=== PATIENT | male | born 2000 | race Two or more races ===

== ENCOUNTER 2018-02-23 11:33 | Day surgery (SDC) | payer OTHER ==
[~2018-02-23 11:33] MED LIST: CEFAZOLIN SODIUM 2 GM in DEXTROSE 5%-WATER 100 ML IV PRN
[2018-02-23] MEDS ORDERED: LIDOCAINE 2% INJ-PF (20 MG/ML) 10 ML AMPUL ONE (16:05)
[2018-02-23] MEDS ORDERED: FENTANYL CITRATE INJ/PF 100 MCG/2 ML AMPUL ONE (16:06)
[2018-02-23] MEDS ORDERED: PROPOFOL INJ 200 MG/20 ML VIAL IV ONE (16:06)
[2018-02-23] MEDS ORDERED: ONDANSETRON HCL INJ/PF 4 MG/2 ML SDV ONE (16:06)
[2018-02-23] MEDS ORDERED: DEXAMETHASONE SOD PHOSPHATE INJ 4 MG/1 ML VIAL ONE (16:06)
[2018-02-23] MEDS ORDERED: MIDAZOLAM 2 MG/2 ML INJ ONE (16:06)
[2018-02-23] MEDS ORDERED: ACETAMINOPHEN 1,000 MG/100 ML RTUPB IV ONE (16:06)
[2018-02-23] MEDS ORDERED: BUPIVACAINE HCL 0.5 % INJ/PF 30 ML SDV ONE (16:13)
[2018-02-23] MEDS ORDERED: MORPHINE SULFATE 10 MG/ML INJ IV PRN (16:50)
[2018-02-23] MEDS ORDERED: DIPHENHYDRAMINE HCL 50 MG/ML VIAL IV PRN (16:50)
[2018-02-23] MEDS ORDERED: PROMETHAZINE HCL INJ 25 MG/1 ML VIAL IV PRN ×2 (16:50)
[2018-02-23] MEDS ORDERED: FENTANYL CITRATE INJ/PF 100 MCG/2 ML AMPUL IV PRN ×3 (16:50)
[2018-02-23] MEDS ORDERED: ONDANSETRON HCL INJ/PF 4 MG/2 ML SDV IV PRN ×2 (16:50→18:45)
[2018-02-23] MEDS ORDERED: MEPERIDINE HCL/PF INJ 25 MG/1 ML DISP.SYRIN IV PRN (16:50)
[2018-02-23] MEDS ORDERED: OXYCODONE-ACETAMINOPHEN 5-325 MG TABLET PO PRN (18:19)
[2018-02-23 19:39] VITALS: BP 113/70
--- NOTE | 2018-02-23 19:45 | RADIOLOGY REPORT (SQ) ---
EXAM DESCRIPTION: FINGER RIGHT; NO CHG FLUORO COMPLETED DATE/TIME: 02/23/2018 7:12 pm REASON FOR STUDY: RT 5TH CHIP REPAIR COMPARISON: None. FLUOROSCOPY TIME: 13 seconds 2 Images saved to PACS LIMITATIONS: None. PROCEDURE: Digital chip fracture repair. FINDINGS: Images seen with fluoro document the procedure. IMPRESSION: Digital chip fracture repair. Refer to operative note for further information. COMMENT: PQRS 6045F: Fluoroscopy time of the procedure is documented in the report. TECHNICAL DOCUMENTATION: JOB ID: [id number] [employer]- All Rights Reserved Reading location - IP/workstation name: [email or web address]
--- NOTE | 2018-02-23 19:45 | RADIOLOGY REPORT (SQ) ---
EXAM DESCRIPTION: FINGER RIGHT; NO CHG FLUORO COMPLETED DATE/TIME: 02/23/2018 7:12 pm REASON FOR STUDY: RT 5TH CHIP REPAIR COMPARISON: None. FLUOROSCOPY TIME: 13 seconds 2 Images saved to PACS LIMITATIONS: None. PROCEDURE: Digital chip fracture repair. FINDINGS: Images seen with fluoro document the procedure. IMPRESSION: Digital chip fracture repair. Refer to operative note for further information. COMMENT: PQRS 6045F: Fluoroscopy time of the procedure is documented in the report. TECHNICAL DOCUMENTATION: JOB ID: [id number] [employer]- All Rights Reserved Reading location - IP/workstation name: [email or web address]
--- NOTE | 2018-02-23 21:33 | OPERATIVE REPORT E ---
Operative Report NAME: EMILY HUITRON : 2000 AGE: 17Y DATE OF SURGERY:02/23/2018 ROOM: PREOPERATIVE DIAGNOSES: 1. RIGHT SMALL FINGER DISTAL PHALANX ARTICULAR FRACTURE. 2. RIGHT SMALL FINGER EXTENSOR TENDON DISRUPTION. POSTOPERATIVE DIAGNOSES: 1. RIGHT SMALL FINGER DISTAL PHALANX ARTICULAR FRACTURE. 2. RIGHT SMALL FINGER EXTENSOR TENDON DISRUPTION. OPERATIONS: 1. Open reduction internal fixation, right small finger distal phalanx articular fracture. 2. Right small finger extensor tendon terminal slip repair. SURGEON: SHUKRI LEMON M.D. ANESTHESIA: General. BLOOD LOSS: Minimal. COMPLICATIONS: None. IMPLANTS: Mills 1.2 mm screw with 1-hole plate. INDICATIONS FOR PROCEDURE: The patient is a 17-year-old [employer] who had sustained a displaced articular fracture of the distal phalanx with disruption of the extensor mechanism. He had been treated nonoperatively with no interval consolidation, as well as volar subluxation of the distal interphalangeal joint. PROCEDURE: Following the induction of a general anesthetic and administration of antibiotics, the patient was positioned supine on the operating room table. Bony prominences were padded. A tourniquet was placed proximally on the right arm, but not inflated. The right upper extremity was sterilely prepped with Chloraprep and draped in standard fashion. The arm was exsanguinated and the tourniquet inflated to 100 mm by systolic pressure. A Y incision was made over the distal interphalangeal joint. Sharp incision was performed through skin, blunt dissection through subcutaneous tissue. Extensor tendon was identified and protected. Image intensification was used to demonstrate the articular fracture. The articular fracture was displaced with abundance of granulation tissue present. This was opened up with a 15 blade and all of the bony contours were freshened. The distal phalanx fracture was mobilized and placed back into its bony bed. It was a relatively small 2 to 3 mm piece. It was held in place with a 1-hole plate using a 1.2 mm screw. Image intensification was used, which confirmed correct placement of the implant, coaptation of the fracture and buddhist of the normal alignment of the distal interphalangeal joint. The wound was irrigated. The extensor mechanism was imbricated using a dermatotenodesis technique. A 4-0 nylon suture was used to grasp the extensor both distal and proximal to the bony fragment. This was performed in 4 [address] to repair both the extensor tendon as well as the bony disruption at the distal interphalangeal joint. Then 0.25% Marcaine was injected as a digital block for postoperative analgesia. A sterile dressing was placed, followed by a splint, splinting the distal interphalangeal and proximal interphalangeal joints in full extension. The patient tolerated the procedure well without complications and was brought to the recovery room in stable condition. DICTATING PHYSICIAN: SHUKRI LEMON M.D. [id number] PHY#: [id number] ID: [id number] JOB#: [id number] ACCT: [id number] cc:SHUKRI LEMON M.D. >
== END 2018-02-23 19:30 | disposition home or self-care (01) ==
LOC: OROUT 11:33 → EDBD 17:00 → OROUT 19:30
PROVIDERS: ATTEND Orthopaedic Surgery
DX: S62.636A Displaced fracture of distal phalanx of right little finger, initial encounter for closed fracture (principal); S66.316A Strain of extensor muscle, fascia and tendon of right little finger at wrist and hand level, initial encounter; W19.XXXA Unspecified fall, initial encounter; M20.011 Mallet finger of right finger(s)
CPT/HCPCS: 73140; 26765; 26418; J2250; J3490 ×2; J0690; J1100; J3010; J2405; J2704; J0131; 01830

== ENCOUNTER 2018-04-06 08:30 | Day surgery (SDC) | payer OTHER ==
[~2018-04-06 08:30] MED LIST changes: +CEFAZOLIN 2 GM/D5W RTU 2 GM/50 ML RTUPB IV PRN; -CEFAZOLIN SODIUM 2 GM in DEXTROSE 5%-WATER 100 ML IV PRN
[2018-04-06] MEDS ORDERED: CEFAZOLIN 2 GM/D5W RTU 2 GM/50 ML RTUPB IV ONE (08:33)
[2018-04-06] MEDS ORDERED: PROPOFOL INJ 200 MG/20 ML VIAL IV ONE (10:20)
[2018-04-06] MEDS ORDERED: FENTANYL CITRATE INJ/PF 100 MCG/2 ML AMPUL ONE (10:20)
[2018-04-06] MEDS ORDERED: ACETAMINOPHEN 1,000 MG/100 ML RTUPB IV ONE (10:20)
[2018-04-06] MEDS ORDERED: MIDAZOLAM 2 MG/2 ML INJ ONE (10:20)
[2018-04-06] MEDS ORDERED: BUPIVACAINE HCL 0.5 % INJ/PF 30 ML SDV ONE (10:21)
[2018-04-06] MEDS ORDERED: PROMETHAZINE HCL INJ 25 MG/1 ML VIAL IV PRN (11:07)
[2018-04-06] MEDS ORDERED: FENTANYL CITRATE INJ/PF 100 MCG/2 ML AMPUL IV PRN ×3 (11:07)
[2018-04-06] MEDS ORDERED: ONDANSETRON HCL INJ/PF 4 MG/2 ML SDV IV PRN (11:07)
[2018-04-06] MEDS ORDERED: OXYCODONE-ACETAMINOPHEN 5-325 MG TABLET PO PRN (11:57)
[2018-04-06] MEDS ORDERED: ONDANSETRON HCL INJ/PF 4 MG/2 ML SDV IV ONE (12:00)
[2018-04-06 13:43] VITALS: BP 118/74
--- NOTE | 2018-04-06 13:52 | RADIOLOGY REPORT (SQ) ---
EXAM DESCRIPTION: NO CHG FLUORO; FINGER RIGHT COMPLETED DATE/TIME: 04/06/2018 12:42 pm REASON FOR STUDY: RT PINKY FINGER ORIF / PINNING ASST WITH FLUORO IN OR S62.606A FRACTURE OF UNSP P HALANX OF RIGHT LITTLE FINGER, IN COMPARISON: None. FLUOROSCOPY TIME: 20 seconds 3 images saved to PACS. TECHNIQUE: Intra-operative images acquired during surgical procedure to evaluate progress. NUMBER OF IMAGES: 3 LIMITATIONS: None. FINDINGS: Selected images from orthopedic pinning of the distal interphalangeal joint. IMPRESSION: IMAGE(S) OBTAINED DURING PROCEDURE. COMMENT: Quality ID 145: Final reports for procedures using fluoroscopy that document radiation exp osure indices, or exposure time and number of fluorographic images (if radiation exposure indices are not available) Please consult full operative report of the attending physician for description of the procedure. TECHNICAL DOCUMENTATION: JOB ID: [id number] [employer]- All Rights Reserved Reading location - IP/workstation name: [email or web address]
--- NOTE | 2018-04-06 13:52 | RADIOLOGY REPORT (SQ) ---
EXAM DESCRIPTION: NO CHG FLUORO; FINGER RIGHT COMPLETED DATE/TIME: 04/06/2018 12:42 pm REASON FOR STUDY: RT PINKY FINGER ORIF / PINNING ASST WITH FLUORO IN OR S62.606A FRACTURE OF UNSP P HALANX OF RIGHT LITTLE FINGER, IN COMPARISON: None. FLUOROSCOPY TIME: 20 seconds 3 images saved to PACS. TECHNIQUE: Intra-operative images acquired during surgical procedure to evaluate progress. NUMBER OF IMAGES: 3 LIMITATIONS: None. FINDINGS: Selected images from orthopedic pinning of the distal interphalangeal joint. IMPRESSION: IMAGE(S) OBTAINED DURING PROCEDURE. COMMENT: Quality ID 145: Final reports for procedures using fluoroscopy that document radiation exp osure indices, or exposure time and number of fluorographic images (if radiation exposure indices are not available) Please consult full operative report of the attending physician for description of the procedure. TECHNICAL DOCUMENTATION: JOB ID: [id number] [employer]- All Rights Reserved Reading location - IP/workstation name: [email or web address]
--- NOTE | 2018-04-06 14:03 | OPERATIVE REPORT E ---
Operative Report NAME: EMILY HUITRON : 2000 AGE: 17Y DATE OF SURGERY: ROOM: PREOPERATIVE DIAGNOSES: 1. Right small finger mechanical complications of hardware. 2. Right small mallet fracture. POSTOPERATIVE DIAGNOSIS: 1. Right small finger mechanical complications of hardware. 2. Right small mallet fracture. PROCEDURE: 1. Right small finger removal of hardware. 2. Right small finger extensor tendon repair. 3. Right small finger flap closure. SURGEON: SHUKRI LEMON M.D. ANESTHESIA: General. BLOOD LOSS: Minimal. COMPLICATIONS: None. INDICATIONS: The patient is a 17-year-old [employer] who previously underwent open reduction, internal fixation of a mallet fracture of the right small finger. He returned to the office this week in a normal postoperative visit with hardware exposed through the skin. DESCRIPTION OF PROCEDURE: Following induction of general anesthetic, administration of antibiotics the patient was positioned supine on the operating room table. Bony prominences were padded. A tourniquet was placed proximally on the right arm, but not inflated. The right upper extremity was sterilely prepped with Chloraprep and draped in the standard fashion. The arm was exsanguinated and the tourniquet inflated to 100 mm above systolic pressure. At the beginning of the procedure skin flaps were raised in a V-shaped fashion, extended proximally and distally to the prior surgical incision. Flaps were then raised sharply with a 15 blade. All necrotic skin was sharply debrided. Skin was raised over the extensor tendon. Any tissue on the extensor tendon was also mechanically debrided. Copious irrigation was performed. The mallet fracture had begun to start healing and there was a callus formation. Prior surgical pain had involved trying to perform re-fixation, but this did not seem necessary. Instead, the distal phalanx was reduced onto the middle phalanx and under image intensification a retrograde 0.045 Colby wire was driven, maintaining this alignment. Intraoperative image intensification was brought in, which confirmed adequate placement of the mallet fracture into its bony bed from where it had started to heal from prior internal fixation. Additional irrigation was performed. The extensor tendon was repaired to the distal flap using a dermatotenodesis technique with the extensor tendon at rest with the suture used to suture the skin. Nylon 3-0 suture was used in this procedure. Due to the skin loss, skin flaps were raised and they were advanced proximally, distally, and across the midline, performing a flap closure to allow full skin coverage despite some prior skin necrosis. Marcaine 0.25% was then injected for postoperative analgesia. A bulky sterile dressing and splint were applied. The patient tolerated the procedure well without complication. He was brought to the recovery room in stable condition. DICTATING PHYSICIAN: SHUKRI LEMON M.D. [id number] PHY#: [id number] ID: [id number] JOB#: [id number] ACCT: [id number] cc:SHUKRI LEMON M.D. >
== END 2018-04-06 13:30 | disposition home or self-care (01) ==
LOC: OROUT 08:30
PROVIDERS: ATTEND Orthopaedic Surgery
DX: T84.210A Breakdown (mechanical) of internal fixation device of bones of hand and fingers, initial encounter (principal); Y83.8 Other surgical procedures as the cause of abnormal reaction of the patient, or of later complication, without mention of misadventure at the time of the procedure; M20.011 Mallet finger of right finger(s)
CPT/HCPCS: 20680; 26418; 14040; 73140; C1713; J2250; J3490; J3010; J2704; J0690; J0131; 01830